=== PATIENT | female | born 1985 | race Caucasian/White ===

== ENCOUNTER 2016-10-15 20:51 | Emergency (ER) | payer BC | END 2016-10-15 23:16 | disposition home or self-care (01) | LOC: ER 20:51 | DX: M54.10 Radiculopathy, site unspecified (principal); M79.672 Pain in left foot; Z79.899 Other long term (current) drug therapy; Z88.0 Allergy status to penicillin; Z88.1 Allergy status to other antibiotic agents | CPT/HCPCS: 73610; 73630; 99283 ==